=== PATIENT | female | born 1990 | race Caucasian/White ===

== ENCOUNTER → 2019-11-29 | Outpatient (CLI) | payer OTHER | END | disposition home or self-care (01) | LOC: LAB 16:55 | DX: J11.1 Influenza due to unidentified influenza virus with other respiratory manifestations (principal) ==

== ENCOUNTER 2019-12-05 22:57 | Emergency (ER) | payer OTHER ==
[~2019-12-05] VITALS: Ht 154.9 cm; Wt 41.7 kg
[2019-12-05] MEDS ORDERED: CLONAZEPAM1 MG (23:38)
== END 2019-12-06 14:08 | disposition home or self-care (01) ==
LOC: ER 22:57
DX: K29.70 Gastritis, unspecified, without bleeding (principal)

== ENCOUNTER 2021-05-20 08:00 | Outpatient (CLI) | payer OTHER ==
[~2021-05-20 08:00] MED LIST: CLONAZEPAM1 MG
== END 2021-05-20 08:30 | disposition home or self-care (01) ==
LOC: PPH VACUNA 08:00
DX: Z23 Encounter for immunization (principal)

== ENCOUNTER 2021-06-10 08:00 | Outpatient (CLI) | payer OTHER | END 2021-06-10 08:30 | disposition home or self-care (01) | LOC: PPH VACUNA 08:00 | DX: Z23 Encounter for immunization (principal) ==